=== PATIENT | male | born 1995 | race Caucasian/White ===

== ENCOUNTER 2016-07-09 17:21 | Emergency (ER) | payer SELFPAY ==
[2016-07-09 20:12] VITALS: BP 116/66
[2016-07-09] MEDS ORDERED: Polymyx/Trimethoprim OPTH* 10 ML BTL RIGHT EYE ONE (20:23)
--- NOTE | 2016-07-09 20:25 | UC ---
Eye Complaint HPI - HPI Summary HPI Summary: left eye red itchy and draining began - History of Current Complaint Chief Complaint: UCBurn Stated Complaint: PINK EYE Time Seen by Provider: 07/09/16 20:15 Hx Obtained From: Patient Onset/Duration: Sudden Onset, Lasting Days, Still Present Timing: Constant Severity Initially: Mild Severity Currently: Mild Location of Injury: Conjunctiva Aggravating Factor(s): Nothing Alleviating Factor(s): Nothing Associated Signs And Symptoms: Positive: Drainage (Purulent) - Allergies/Home Medications Allergies/Adverse Reactions: Allergies Allergy/AdvReac Type Severity Reaction Status Date / Time No Known Allergies Allergy Verified 07/09/16 19:37 PMH/Surg Hx/FS Hx/Imm Hx Previously Healthy: Yes Endocrine History Of: Denies: Diabetes, Thyroid Disease Cardiovascular History Of: Denies: Cardiac Disorders, Hypertension Respiratory History Of: Denies: COPD, Asthma GI/ History Of: Denies: Ulcer - Surgical History Surgical History: Yes Surgery Procedure, Year, and Place: Right ear surgery,T&A B/L pe tubes age [age]. - Family History Known Family History: Positive: None, Unknown, Other - colon CA (uncle), No FHx gout - Social History Occupation: Employed Full-time Lives: With Family Alcohol Use: Occasionally Substance Use Type: None Smoking Status (MU): Never Smoked Tobacco Have You Smoked in the Last Year: No Household Exposure Type: Cigarettes - Immunization History Most Recent Influenza Vaccination: denies Hx Tetanus, Diphtheria Vaccination: Yes Vaccination Up to Date: Yes Review of Systems Constitutional: Negative Skin: Negative Eyes: Drainage, Eye Redness ENT: Negative Respiratory: Negative Cardiovascular: Negative Gastrointestinal: Negative Genitourinary: Negative Motor: Negative Neurovascular: Negative Musculoskeletal: Negative Neurological: Negative Psychological: Negative All Other Systems Reviewed And Are Negative: Yes Physical Exam Triage Information Reviewed: Yes Appearance: Well-Appearing, No Pain Distress, Well-Nourished Vital Signs: Initial Vital Signs Temp 98.2 F 07/09/16 19:25 Pulse 64 07/09/16 19:25 Resp 16 07/09/16 19:25 BP 118/72 07/09/16 19:25 Pulse Ox 100 07/09/16 19:25 Vital Signs Reviewed: Yes Eye Exam: Normal Eyes: Positive: Conjunctiva Inflamed, Discharge, Other: - Perrla, eomi, fundascopic exam wnl ENT Exam: Normal ENT: Positive: Normal ENT inspection, Hearing grossly normal, Pharynx normal, TMs normal. Negative: Nasal congestion, Nasal drainage, Tonsillar swelling, Tonsillar exudate, Trismus, Muffled/hoarse voice Dental Exam: Normal Neck exam: Normal Neck: Positive: Supple, Nontender, No Lymphadenopathy Respiratory Exam: Normal Respiratory: Positive: Chest non-tender, No respiratory distress, No accessory muscle use Cardiovascular Exam: Normal Cardiovascular: Positive: RRR, No Murmur, Pulses Normal, Brisk Capillary Refill Musculoskeletal Exam: Normal Musculoskeletal: Positive: Strength Intact, ROM Intact, No Edema Neurological Exam: Normal Neurological: Positive: Alert, Muscle Tone Normal Psychological Exam: Normal Skin Exam: Normal Eye Complaint Course/Dx - Course Course Of Treatment: polytrim eye drop q 4 h left eye for 5 days - Differential Dx/Diagnosis Differential Diagnosis/HQI/PQRI: Conjunctivitis, Penetrating Injury, Uveitis Provider Diagnoses: OS Conjuctivitis Discharge - Discharge Plan Condition: Stable Disposition: HOME Patient Education Materials: Conjunctivitis (ED), How to Use Eye Drops (ED) Forms: *Work Release Referrals: [facility] [place] [facility] [Outside] - If Needed
== END 2016-07-09 20:45 | disposition home or self-care (01) ==
LOC: UCEAST 17:21
DX: H10.9 Unspecified conjunctivitis (principal)
CPT/HCPCS: 99212; G0463

== ENCOUNTER 2016-07-09 17:21 | Emergency (ER) | payer SELFPAY ==
[2016-07-09 20:12] VITALS: BP 116/66
[2016-07-09] MEDS ORDERED: Ibuprofen TAB* 400 MG PO ONE (20:27)
[2016-07-09] MEDS ORDERED: Cephalexin CAP* 500 MG PO ONE (20:27)
[2016-07-09] MEDS ORDERED: Tetan/Diph/Pertus SYR(Tdap)* 0.5 ML SYR(BOOSTRIX) use SYR IM ONE (20:27)
--- NOTE | 2016-07-09 20:28 | UC ---
HPI BURN - HPI Summary HPI Summary: burnt left thumb at work---was doing ok but now significant increase in pain swelling erythema - History of Current Complaint Chief Complaint: UCBurn Stated Complaint: BURN ON FINGER-WC Time Seen by Provider: 07/09/16 20:16 Hx Obtained From: Patient Occurred: Days Ago Length of Exposure: Minutes Onset Severity: Mild Current Severity: Moderate Pain Intensity: 6 Pain Scale Used: 0-10 Numeric Location: LUE Character: Direct Thermal Contact Alleviating: Nothing Occupational Injury: Yes - Allergy/Home Medications Allergies/Adverse Reactions: Allergies Allergy/AdvReac Type Severity Reaction Status Date / Time No Known Allergies Allergy Verified 07/09/16 19:37 PMH/Surg Hx/FS Hx/Imm Hx Previously Healthy: Yes Endocrine History Of: Denies: Diabetes, Thyroid Disease Cardiovascular History Of: Denies: Cardiac Disorders, Hypertension Respiratory History Of: Denies: COPD, Asthma GI/ History Of: Denies: Ulcer - Surgical History Surgical History: Yes Surgery Procedure, Year, and Place: Right ear surgery,T&A B/L pe tubes age [age]. - Family History Known Family History: Positive: None, Unknown, Other - colon CA (uncle), No FHx gout - Social History Occupation: Employed Full-time Lives: With Family Alcohol Use: Occasionally Substance Use Type: None Smoking Status (MU): Never Smoked Tobacco Have You Smoked in the Last Year: No Household Exposure Type: Cigarettes - Immunization History Most Recent Influenza Vaccination: denies Hx Tetanus, Diphtheria Vaccination: Yes Vaccination Up to Date: Yes Review of Systems Constitutional: Negative Skin: Other - partial thickness burn left thumb----no with evidence of infection , increase pain, erythmea, swelling Eyes: Negative ENT: Negative Respiratory: Negative Cardiovascular: Negative Gastrointestinal: Negative Genitourinary: Negative Motor: Negative Neurovascular: Negative Musculoskeletal: Negative Neurological: Negative Psychological: Negative All Other Systems Reviewed And Are Negative: Yes Physical Exam Triage Information Reviewed: Yes Appearance: Well-Appearing, No Pain Distress, Well-Nourished Vital Signs: Initial Vital Signs Temp 98.2 F 07/09/16 19:34 Pulse 64 07/09/16 19:34 Resp 16 07/09/16 19:34 BP 118/72 07/09/16 19:34 Pulse Ox 100 07/09/16 19:34 Vital Signs Reviewed: Yes Eye Exam: Normal Eyes: Positive: Conjunctiva Inflamed - os, Discharge - os ENT Exam: Normal ENT: Positive: Normal ENT inspection, Hearing grossly normal, Pharynx normal, TMs normal. Negative: Nasal congestion, Nasal drainage, Tonsillar swelling, Tonsillar exudate, Trismus, Muffled/hoarse voice Neck exam: Normal Neck: Positive: Supple, Nontender, No Lymphadenopathy Respiratory Exam: Normal Respiratory: Positive: Chest non-tender, No respiratory distress, No accessory muscle use Cardiovascular Exam: Normal Cardiovascular: Positive: RRR, No Murmur, Pulses Normal, Brisk Capillary Refill Musculoskeletal Exam: Normal Musculoskeletal: Positive: Strength Intact, ROM Limited @ - left thumb, Edema @ - left thumb Neurological Exam: Normal Neurological: Positive: Alert, Muscle Tone Normal, Fatigued Psychological Exam: Normal Psychological: Positive: Normal Response To Family Skin Exam: Normal Burn Calculation - Left Arm 9% Left Arm 2nd De - less than 1% left thumb - Total 2nd Deg Total: 1 Total % BSA: 1 - [place] Formula for Fluid Resuscitation Weight: 69.4 kg Total % BSA 2nd & 3rd Degree: 1 24 -Hour Fluid Replacement: 277.6 Course/Dx Burn - Course Course Of Treatment: update tetnus, dresssing warm compress, antibiodics follow with MD Prn - Differential Dx - Burn Differential Diagnoses: Direct Contact Thermal Burn - Diagnoses Clinic Provider Diagnoses: partial thickness burn left thumb with secondary cellulitis Discharge - Discharge Plan Condition: Stable Disposition: HOME Prescriptions: Cephalexin CAP* [Keflex CAP*] 500 mg PO QID #39 cap Patient Education Materials: Diphtheria/Acellular Pertussis/Tetanus Booster Vaccine (By injection), Wound Infection (ED), Second Degree Burn (ED), Acute Wound Care (ED) Referrals: [facility] [place] [Outside] - 3 Days No Primary Care Phys,NOPCP [Primary Care Provider] -
== END 2016-07-09 20:45 | disposition home or self-care (01) ==
LOC: UCEAST 17:21
DX: T23.012A Burn of unspecified degree of left thumb (nail), initial encounter (principal); L03.012 Cellulitis of left finger; T31.0 Burns involving less than 10% of body surface; T79.8XXA Other early complications of trauma, initial encounter; X08.8XXA Exposure to other specified smoke, fire and flames, initial encounter; Y93.9 Activity, unspecified; Y92.9 Unspecified place or not applicable; Y99.0 Civilian activity done for income or pay; Z23 Encounter for immunization; Z77.22 Contact with and (suspected) exposure to environmental tobacco smoke (acute) (chronic)
CPT/HCPCS: 90471; 90715; 99213; A9270-GY; G0463

== ENCOUNTER 2016-10-12 19:52 | Emergency (ER) | payer BC, OTHER ==
[2016-10-12 20:22] VITALS: BP 98/53
[2016-10-12] MEDS ORDERED: Acetaminophen TAB* 325 MG PO ONE (21:04)
[2016-10-12] MEDS ORDERED: Lidocaine 1% MPF* 2 ML VIAL INJ ONE (21:04)
[2016-10-12] MEDS ORDERED: Amoxicillin/Clavulanate TAB* 875 MG PO ONE (21:23)
--- NOTE | 2016-10-12 21:27 | UC ---
Skin Complaint HPI - HPI Summary HPI Summary: Pt presents with 3 weeks progressive pain and swelling of dorsum left index at cuticle +pain. pressure. no drainage. no trauma No fevers, chills. Not immunocompromised. tdap UTD> no h /o MRSA. No analgesia taken. 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 Onset/Duration: Gradual Onset Skin Exposure Onset/Duration: Weeks Ago Timing: Constant Onset Severity: Mild Current Severity: Moderate Pain Intensity: 6 Location: Discrete - left index at cuticle Aggravating: Touch Alleviating: Nothing - Allergy/Home Medications Allergies/Adverse Reactions: Allergies Allergy/AdvReac Type Severity Reaction Status Date / Time No Known Allergies Allergy Verified 10/12/16 20:23 Review of Systems Constitutional: Negative Skin: Other - left index Eyes: Negative ENT: Negative Respiratory: Negative Cardiovascular: Negative Gastrointestinal: Negative Genitourinary: Negative Motor: Negative Neurovascular: Negative Musculoskeletal: Negative Neurological: Negative Psychological: Negative All Other Systems Reviewed And Are Negative: Yes PMH/Surg Hx/FS Hx/Imm Hx - Surgical History Surgical History: Yes Surgery Procedure, Year, and Place: Right ear surgery,T&A B/L pe tubes age [age]. - Family History Known Family History: Positive: None, Unknown, Other - colon CA (uncle), No FHx gout - Social History Alcohol Use: Occasionally Substance Use Type: None Smoking Status (MU): Never Smoked Tobacco Have You Smoked in the Last Year: No Household Exposure Type: Cigarettes - Immunization History Most Recent Influenza Vaccination: denies Hx Tetanus, Diphtheria Vaccination: Yes Vaccination Up to Date: Yes Physical Exam Triage Information Reviewed: Yes Appearance: Well-Appearing, No Pain Distress, Well-Nourished Vital Signs: Initial Vital Signs Temp 98.4 F 10/12/16 20:18 Pulse 58 10/12/16 20:18 Resp 16 10/12/16 20:18 BP 98/53 10/12/16 20:18 Pulse Ox 99 10/12/16 20:18 Vital Signs Reviewed: Yes Eyes: Positive: Conjunctiva Clear ENT: Positive: Hearing grossly normal Neck: Positive: Supple Respiratory: Positive: No respiratory distress, No accessory muscle use Cardiovascular: Positive: Other: - 2+ radial CBT < 2 sec Musculoskeletal: Positive: Other: - + flex/ext mcp, pip, dip left index withotu difficulty or limitation Neurological: Positive: Other: - + sensation throughout tip Psychological Exam: Normal Skin: Positive: Other - Pt with left index paronychia at nailbed. Not circumferential, no pad involvement Course/Dx - Course Course Of Treatment: Pt with paronychia left index. d/w pt for I+ D. Augmentin. soaks. wound culture. elevate. motrin/apap. splint for comfort - Diagnoses Provider Diagnoses: left paroncyhia Procedures - Procedure Summary Procedure Summary: + verbal consent + time out under sterile condition infiltrated wound with 0.5ml lidocaine without epi using 11 blade lifted cuticle mild purluent - thick fluid removed culture taken irrigated with water covered with abx ointment bandage Pt tolerated well - Incision and Drainage Site: left index paronychia Anesthesia: Local Instrument(s): Scalpel Discharge - Discharge Plan Condition: Stable Disposition: HOME Prescriptions: Amoxicillin/Clavulanate TAB* [Augmentin TAB 875*] 875 mg PO BID #14 tab Patient Education Materials: Paronychia (ED) Forms: *Work Release Referrals: No Primary Care Phys,NOPCP [Primary Care Provider] - Additional Instructions: - take antibiotics as prescribed unntil gone. They may cause diarrhea which is normal - okay to alternate ibuprofen (advil, motrin) and tylenol every 3hours for pain. Take with food. Do NOT take for more than 4-5 days - soak wound in warm water or epsom salt water 15 minutes 2-3 times a day for 3- 4 days. Then pat dry, cover with abx ointment such as neosporin or polysporin and a bandage - wear splint as much as needed for support and protection - Contact your doctor or return with questions or concerns.
== END 2016-10-12 21:30 | disposition home or self-care (01) ==
LOC: UCCORT 19:52
DX: L03.012 Cellulitis of left finger (principal); Z77.22 Contact with and (suspected) exposure to environmental tobacco smoke (acute) (chronic)
CPT/HCPCS: 10060; 87070; 87077; 87186; 87205; 87640; 87641; 99212; A9270-GY; G0463

== ENCOUNTER 2017-09-11 12:50 | Emergency (ER) | payer OTHER ==
[2017-09-11 13:30] VITALS: BP 100/52
--- NOTE | 2017-09-11 13:49 | UC ---
Upper Extremity HPI - HPI Summary HPI Summary: The patient is a 22-year-old male who presents here with 2 work-related injuries. 5 or 6 days ago he noted the onset of left shoulder pain after were. The pain primarily involves the left trapezius and clavicular region. He has some pain with the abduction of his left arm. He also has about a 2-3 day history of left wrist pain. The pain occurred after forced hyperextension of the left wrist while carrying wood. The whole wrist jain but the pain is worse on the ulnar aspect of the wrist. - History of Current Complaint Chief Complaint: UCUpperExtremity Stated Complaint: WC - LT SHOULDER,LT WRIST Time Seen by Provider: 09/11/17 13:32 Onset/Duration: Sudden Onset Severity Initially: Moderate Severity Currently: Moderate Pain Intensity: 8 Pain Scale Used: 0-10 Numeric Location Of Pain: Is Diffuse Character: Dull, Aching Aggravating Factor(s): Movement Alleviating Factor(s): Nothing Associated Signs And Symptoms: Positive: Negative Related History: Occupational Injury Body - Head: 1 - pain/FROM/tender over TFCC - Allergies/Home Medications Allergies/Adverse Reactions: Allergies Allergy/AdvReac Type Severity Reaction Status Date / Time No Known Allergies Allergy Verified 09/11/17 13:23 PMH/Surg Hx/FS Hx/Imm Hx Previously Healthy: Yes - Surgical History Surgical History: Yes Surgery Procedure, Year, and Place: Right ear surgery,T&A B/L pe tubes age [age]. - Family History Known Family History: Positive: None, Unknown, Other - colon CA (uncle), No FHx gout - Social History Alcohol Use: Occasionally Substance Use Type: None Smoking Status (MU): Never Smoked Tobacco Have You Smoked in the Last Year: No Household Exposure Type: Cigarettes - Immunization History Most Recent Influenza Vaccination: denies Hx Tetanus, Diphtheria Vaccination: Yes Vaccination Up to Date: Yes Review of Systems Constitutional: Negative Skin: Negative Eyes: Negative ENT: Negative Respiratory: Negative Cardiovascular: Negative Gastrointestinal: Negative Genitourinary: Negative Motor: Negative Neurovascular: Negative Musculoskeletal: Arthralgia, Myalgia Neurological: Negative Psychological: Negative Is Patient Immunocompromised?: No All Other Systems Reviewed And Are Negative: Yes Physical Exam Triage Information Reviewed: Yes Appearance: Well-Appearing, No Pain Distress, Well-Nourished Vital Signs: Initial Vital Signs Temp 98.7 F 09/11/17 13:24 Pulse 59 09/11/17 13:24 Resp 14 09/11/17 13:24 BP 100/52 09/11/17 13:24 Pulse Ox 99 09/11/17 13:24 Vital Signs Reviewed: Yes Eyes: Positive: Conjunctiva Clear ENT: Positive: Hearing grossly normal, Pharynx normal. Negative: Nasal congestion, Nasal drainage, Trismus, Muffled voice, Hoarse voice, Dental tenderness, Sinus tenderness Neck: Positive: Supple, Nontender Respiratory: Positive: Lungs clear, Normal breath sounds, No respiratory distress, No accessory muscle use, Respiratory distress Cardiovascular: Positive: RRR Musculoskeletal: Positive: ROM Limited @ - left shouolder. Negative: Edema @ Neurological: Positive: Alert Psychological Exam: Normal Skin Exam: Normal Diagnostics - Radiology No standard instances Xray Interpretation: No Acute Changes - wrist and shoulder (left) Radiology Interpretation Completed By: Radiologist Upper Extremity Course/Dx - Differential Dx/Diagnosis Provider Diagnoses: left wrist sprain? TFCC tear. left shoulder contusion Discharge - Sign-Out/Discharge Documenting (check all that apply): Discharge/Admit/Transfer - Discharge Plan Condition: Stable Disposition: HOME Prescriptions: Ibuprofen TAB* [Motrin TAB*] 600 mg PO Q6H PRN #40 tab PRN Reason: Pain Patient Education Materials: Contusion in Adults (ED), Wrist Sprain (ED) Forms: *Gen. Provider Communication Referrals: José Luis Higginbotham MD [Medical Doctor] - As Soon As Possible Sherice Kapoor [Primary Care Provider] - Additional Instructions: I suggest ortho follow up you may have injured some cartilage in your wrist - Billing Disposition and Condition Condition: STABLE Disposition: Home
--- NOTE | 2017-09-11 14:17 | RAD ---
INDICATION: Left shoulder injury. TECHNIQUE: 4 views of the left shoulder were obtained. FINDINGS: The bones are in normal alignment. No fracture is seen. Joint spaces appear maintained. There is a small sclerotic lesion present within the humeral head suggestive of a benign bone island. IMPRESSION: NO EVIDENCE OF FRACTURE.
--- NOTE | 2017-09-11 14:19 | RAD ---
INDICATION: Left wrist injury. TECHNIQUE: 3 views of the left wrist were obtained. FINDINGS: The bones are in normal alignment. No fracture is seen. Joint spaces appear maintained. IMPRESSION: NO EVIDENCE FOR FRACTURE.
== END 2017-09-11 14:43 | disposition home or self-care (01) ==
LOC: UCCORT 12:50
DX: M25.532 Pain in left wrist (principal); Y92.9 Unspecified place or not applicable; D16.02 Benign neoplasm of scapula and long bones of left upper limb; X50.0XXA Overexertion from strenuous movement or load, initial encounter; Y93.89 Activity, other specified; S40.012A Contusion of left shoulder, initial encounter
CPT/HCPCS: 99213; G0463